=== PATIENT | female | born 2000 | race Two or more races ===

== ENCOUNTER 2022-09-08 14:23 | Outpatient (CLI) | payer OTHER | END 2022-09-08 14:30 | disposition home or self-care (01) | LOC: PPH VACUNA 14:23 | PROVIDERS: ATTEND Emergency Medicine Pediatric Emergency Medicine | DX: Z23 Encounter for immunization (principal) ==

== ENCOUNTER 2022-11-28 10:55 | Emergency (ER) | payer OTHER ==
[~2022-11-28] VITALS: Ht 165.1 cm; Wt 69.4 kg
== END 2022-11-28 11:23 | disposition home or self-care (01) ==
LOC: ER 10:55
DX: S69.81XA Other specified injuries of right wrist, hand and finger(s), initial encounter (principal); W46.0XXA Contact with hypodermic needle, initial encounter; Y93.89 Activity, other specified; Y92.89 Other specified places as the place of occurrence of the external cause; Y99.8 Other external cause status; Z88.0 Allergy status to penicillin

== ENCOUNTER 2023-04-26 07:18 | Emergency (ER) | payer OTHER ==
[~2023-04-26] VITALS: Ht 165.1 cm; Wt 68.9 kg
[2023-04-26 08:02] LABS: HEMATOCRIT 42.2 % (36.0-45.00); HEMOGLOBIN 14.5 g/dL (12.0-15.00); MEAN CELL VOLUME 85.5 fL (80.00-100.00); MEAN CORPUSCULAR HEMOGLOBIN 29.4 pg (27.00-32.0); MEAN CORPUSCULAR HGB CONC 34.4 g/dl (32.0-36.0); PLATELET COUNT 215 K/uL (150-450); RED BLOOD COUNT 4.94 M/uL (4.00-6.00); RED CELL DISTRIBUTION WIDTH 13.6 % (11.5-14.5)
[2023-04-26 08:28] LABS: BILIRUBIN TOTAL 0.98 mg/dL (0.3-1.2); CREATININE SERUM 0.65 mg/dL (0.55-1.02); GFR 111.06; GLOBULINA 4.1 G/DL (2.4-3.5); POTASSIUM 3.85 mEq/L (3.5-5.1); TOTAL PROTEIN 8.1 gm/dL (6.4-8.2)
== END 2023-04-26 10:20 | disposition home or self-care (01) ==
LOC: ER 07:18
DX: K29.70 Gastritis, unspecified, without bleeding (principal)

== ENCOUNTER 2023-06-25 02:50 | Emergency (ER) | payer OTHER ==
[~2023-06-25] VITALS: Ht 162.6 cm; Wt 70.3 kg
[2023-06-25] MEDS ORDERED: AZITHROMYCIN 500 MG TABLET PO ONE (03:15)
[2023-06-25 03:20] LABS: HEMATOCRIT 37.4 % (36.0-45.00); MEAN CELL VOLUME 85.3 fL (80.00-100.00); MEAN CORPUSCULAR HEMOGLOBIN 29.5 pg (27.00-32.0); MEAN CORPUSCULAR HGB CONC 34.6 g/dl (32.0-36.0); PLATELET COUNT 183 K/uL (150-450); RED BLOOD COUNT 4.39 M/uL (4.00-6.00)
[2023-06-25] MEDS ORDERED: ZITHROMAX500 MG PO (03:42)
== END 2023-06-25 03:47 | disposition home or self-care (01) ==
LOC: ER 02:50
PROVIDERS: General Practice
DX: J06.9 Acute upper respiratory infection, unspecified (principal); Z88.0 Allergy status to penicillin

== ENCOUNTER 2024-02-26 02:37 | Emergency (ER) | payer OTHER ==
[~2024-02-26] VITALS: Ht 165.1 cm; Wt 63.5 kg
[~2024-02-26 02:37] MED LIST: ZITHROMAX500 MG PO
[2024-02-26] MEDS ORDERED: PROMETHAZINE HCL 50 MG/ML AMPUL IM STA (03:08)
[2024-02-26] MEDS ORDERED: HYOSCYAMINE SULFATE 0.125 MG TAB.SUBL SL ONE (03:15)
[2024-02-26] MEDS ORDERED: 0.9 % SODIUM CHLORIDE 1,000 ML IV ONE (03:15)
[2024-02-26 03:28] LABS: HEMATOCRIT 43.1 % (36.0-45.00); HEMOGLOBIN 14.6 g/dL (12.0-15.00); MEAN CELL VOLUME 88.2 fL (80.00-100.00); MEAN CORPUSCULAR HEMOGLOBIN 29.9 pg (27.00-32.0); MEAN CORPUSCULAR HGB CONC 33.9 g/dl (32.0-36.0); PLATELET COUNT 188 K/uL (150-450); RED BLOOD COUNT 4.88 M/uL (4.00-6.00); RED CELL DISTRIBUTION WIDTH 14.1 % (11.5-14.5)
[2024-02-26 03:52] LABS: ALBUMIN 4.5 gm/dL (3.4-5.0); BILIRUBIN TOTAL 0.92 mg/dL (0.3-1.2); CALCIUM 9.3 mg/dL (8.5-10.1); CREATININE SERUM 0.74 mg/dL (0.55-1.02); GFR 94.86; GLOBULINA 4.4 G/DL (2.4-3.5); POTASSIUM 4.04 mEq/L (3.5-5.1); TOTAL PROTEIN 8.9 gm/dL (6.4-8.2)
[2024-02-26] MEDS ORDERED: INTESTINEX680 M2 PO (06:44)
[2024-02-26] MEDS ORDERED: PEPCID40 MG PO (06:44)
[2024-02-26] MEDS ORDERED: ONDANSETRON ODT8 MG PO (06:44)
== END 2024-02-26 06:46 ==
LOC: ER 02:37
PROVIDERS: General Practice
DX: R11.10 Vomiting, unspecified (principal); R19.7 Diarrhea, unspecified; Z88.0 Allergy status to penicillin

== ENCOUNTER 2024-04-09 16:00 | Outpatient (CLI) | payer OTHER ==
[~2024-04-09 16:00] MED LIST changes: +INTESTINEX680 M2 PO; +ONDANSETRON ODT8 MG PO; +PEPCID40 MG PO
== END 2024-04-09 16:10 | disposition home or self-care (01) ==
LOC: PPH VACUNA 16:00
PROVIDERS: ATTEND Emergency Medicine Pediatric Emergency Medicine
DX: Z23 Encounter for immunization (principal)

== ENCOUNTER 2024-08-15 21:40 | Emergency (ER) | payer OTHER ==
[~2024-08-15] VITALS: Ht 172.7 cm; Wt 63.5 kg
[2024-08-15] MEDS ORDERED: ACETAMINOPHEN 500 MG GEL..CAP PO ONE ×2 (21:48→22:00)
[2024-08-15 23:22] LABS: HEMATOCRIT 39.7 % (36.0-45.00); HEMOGLOBIN 13.7 g/dL (12.0-15.00); MEAN CELL VOLUME 84.7 fL (80.00-100.00); MEAN CORPUSCULAR HEMOGLOBIN 29.2 pg (27.00-32.0); MEAN CORPUSCULAR HGB CONC 34.4 g/dl (32.0-36.0); PLATELET COUNT 158 K/uL (150-450); RED BLOOD COUNT 4.69 M/uL (4.00-6.00); RED CELL DISTRIBUTION WIDTH 13.5 % (11.5-14.5)
[2024-08-15] MEDS ORDERED: ZITHROMAX TRI-500 MG PO (23:32)
[2024-08-15] MEDS ORDERED: GILTUSS COUGH-118 M1 PO (23:32)
== END 2024-08-15 23:53 | disposition home or self-care (01) ==
LOC: ER 21:40
PROVIDERS: Preventive Medicine Public Health & General Preventive Medicine
DX: R53.81 Other malaise (principal); J06.9 Acute upper respiratory infection, unspecified; Z20.822 Contact with and (suspected) exposure to COVID-19; Z88.0 Allergy status to penicillin

== ENCOUNTER → 2025-01-15 07:08 | Outpatient (CLI) | payer OTHER ==
[~2025-01-15 07:08] MED LIST changes: +GILTUSS COUGH-118 M1 PO; +ZITHROMAX TRI-500 MG PO
[2025-01-15 07:44] LABS: BASO % 0.7 % (0.1-1.2); EOS # 0.25 (0.04-0.54); EOS % 4.3 % (0.7-7.0); LYMPH # 2.37 (1.18-3.74); LYMPH % 40.5 % (19.3-53.1); MEAN PLATELET VOLUME 11.70 fl (9.4-12.4); MONO # 0.38 (0.24-0.82); MONO % 6.5 % (4.7-12.5); NEUT # 2.80 (1.56-6.13); NEUT % 47.8 % (34.0-71.1); RED CELL DISTRIBUTION WIDTH 12.2 % (11.6-14.4)
[2025-01-15 08:31] LABS: ALT/SGPT 27.0 U/L (12-78); AST/SGOT 19.0 U/L (15-37); BILIRUBIN TOTAL 0.42 mg/dL (0.3-1.2); BUN CREA RATIO 25.0 (7.0-25.0); CHOL HDL RATIO 2.2 (0-5.0); CREATININE SERUM 0.55 mg/dL (0.55-1.02); FE 57.0 ug/dl (50-170); FREE TRIODOTIRONINE 3.05 pg/ml (2.18-3.98); GFR 133.61; GLOBULINA 3.5 G/DL (2.4-3.5); GLUCOSE FASTING 84.0 mg/dL (65-100); HDL 70.0 mg/dl (40-60); LDL 73.0 mg/dl (0-130); OSMOLALITY SERUM 281.0 MOSM/KG (275-295); T4 FREE 1.03 NG/ML (0.76-1.46); TSH 2.82 uIU/mL (0.358-3.74); VLDL 10.0 (0-39)
[2025-01-15 10:05] LABS: VITAMIN D3 25 HYDROXY 38.09 ng/ml (30-120)
== END | disposition home or self-care (01) ==
LOC: LAB 07:08
DX: D64.9 Anemia, unspecified (principal); Z12.9 Encounter for screening for malignant neoplasm, site unspecified; Z00.00 Encounter for general adult medical examination without abnormal findings

== ENCOUNTER 2025-03-06 08:30 | Outpatient (CLI) | payer OTHER | END 2025-03-06 08:40 | disposition home or self-care (01) | LOC: PPH VACUNA 08:30 | PROVIDERS: ATTEND Emergency Medicine Pediatric Emergency Medicine | DX: Z23 Encounter for immunization (principal) ==